=== PATIENT | male | born 1950 | race Caucasian/White ===

== ENCOUNTER 2020-10-01 15:02 | Outpatient (CLI) | payer MEDICARE, BC ==
[~2020-10-01] VITALS: Ht 180.3 cm; Wt 83.8 kg
[~2020-10-01 15:02] MED LIST: CALCIUM500 MG PO; CARDIZEM CD 18180 MG PO; FOSAMAX 70MG TA70 MG PO; MAGNESIUM250 M1 PO; VITAMIN D2000 I1 PO; VITAMIN K100 MCG PO
[2020-10-01 15:50] VITALS: BP 129/81; PULSE 89; TEMP 98.5
[2020-10-01] MEDS ORDERED: CALCIUM 600 PLU1 TAB PO (17:24)
[2020-10-01] MEDS ORDERED: MAGNESIUM250 M1 PO (17:24)
[2020-10-01] MEDS ORDERED: VITAMIN D31000 I1 PO (17:24)
[2020-10-01] MEDS ORDERED: ASPIRIN E.C. 8181 MG PO (17:25)
[2020-10-01] MEDS ORDERED: ALLEGRA 180MG180 MG PO (17:25)
[2020-10-01] MEDS ORDERED: ZESTRIL2.5 MG PO (17:25)
[2020-10-01] MEDS ORDERED: CIALIS5 MG PO (17:26)
[2020-10-01] MEDS ORDERED: ANDROGEL1.62PKT2 TOP (17:26)
== END 2020-10-01 17:30 | disposition home or self-care (01) ==
LOC: EUO 15:02
DX: M81.0 Age-related osteoporosis without current pathological fracture (principal)
CPT/HCPCS: J0897

== ENCOUNTER 2021-04-02 16:03 | Outpatient (CLI) | payer MEDICARE, BC ==
[~2021-04-02] VITALS: Ht 180.3 cm; Wt 84.0 kg
[~2021-04-02 16:03] MED LIST changes: +ALLEGRA 180MG180 MG PO; +ANDROGEL1.62PKT2 TOP; +ASPIRIN E.C. 8181 MG PO; +CALCIUM 600 PLU1 TAB PO; +CIALIS5 MG PO; +VITAMIN D31000 I1 PO; +ZESTRIL2.5 MG PO
[2021-04-02] MEDS ORDERED: ENABLEX 7.5MG7.5 MG PO (16:24)
[2021-04-02 16:29] VITALS: BP 129/77; PULSE 78; TEMP 98.1
== END 2021-04-02 16:37 | disposition home or self-care (01) ==
LOC: EUO 16:03
DX: M81.0 Age-related osteoporosis without current pathological fracture (principal)
CPT/HCPCS: J0897

== ENCOUNTER 2021-10-17 15:35 | Outpatient (CLI) | payer MEDICARE, BC ==
[~2021-10-17] VITALS: Ht 180.3 cm; Wt 82.1 kg
[~2021-10-17 15:35] MED LIST changes: +ENABLEX 7.5MG7.5 MG PO
[2021-10-17 15:42] VITALS: BP 142/87; PULSE 102; TEMP 97.7
== END 2021-10-17 16:07 | disposition home or self-care (01) ==
LOC: EUO 15:35
DX: M81.0 Age-related osteoporosis without current pathological fracture (principal)
CPT/HCPCS: J0897

== ENCOUNTER 2022-04-24 13:11 | Outpatient (CLI) | payer MEDICARE, BC ==
[~2022-04-24] VITALS: Ht 180.3 cm; Wt 82.8 kg
[2022-04-24 13:32] VITALS: BP 151/82; PULSE 77; TEMP 97.8
== END 2022-04-24 13:39 ==
LOC: EUO 13:11
DX: M81.0 Age-related osteoporosis without current pathological fracture (principal)
CPT/HCPCS: J0897